=== PATIENT | male | born 1950 | race Caucasian/White ===

== ENCOUNTER 2017-08-26 16:24 | Emergency (ER) | payer BC ==
[2017-08-26 16:39] VITALS: BP 137/80
--- NOTE | 2017-08-26 16:41 | EDM.PDOC ---
ED HPI GENERAL MEDICAL PROBLEM - General Chief Complaint: Respiratory Problem Stated Complaint: FEVER TROUBLE BREATHING Time Seen by Provider: 08/26/17 16:45 Source of Information: Reports: Patient, RN Notes Reviewed - History of Present Illness INITIAL COMMENTS - FREE TEXT/NARRATIVE: 67 year old male with onset of cough, congestion, sore throat, Eduardo, fever, chills yesterday. Has all of those sx today, no energy, feels weak and dizzy. Cough occasionally productive. Hx of numerous episodes of pneumonia. Generalized Pain Score (Numeric/FACES): 8 - Related Data Allergies Allergy/AdvReac Type Severity Reaction Status Date / Time azithromycin [From Zithromax] Allergy Hives Verified 03/21/16 12:58 Home Meds: Home Meds Methylphenidate [Ritalin] 20 mg PO DAILY 06/08/14 [History] Levofloxacin [Levaquin] 1 tab PO Q24H #7 tablet 03/21/16 [Rx] Omeprazole Magnesium [Prilosec Otc] 20 mg PO DAILY 03/21/16 [History] Levofloxacin [Levaquin] 500 mg PO DAILY #7 tab 08/26/17 [Rx] Past Medical History Cardiovascular History: Reports: High Cholesterol Gastrointestinal History: Reports: Colon Polyp, GERD Genitourinary History: Reports: BPH Musculoskeletal History: Reports: Arthritis - Past Surgical History GI Surgical History: Reports: Other (See Below) Musculoskeletal Surgical History: Reports: Shoulder Surgery Social & Family History - Tobacco Use Smoking Status *Q: Current Every Day Smoker Years of Tobacco use: 40 Packs/Tins Daily: 1 - Alcohol Use Days Per Week of Alcohol Use: 0 - Recreational Drug Use Recreational Drug Use: No - Living Situation & Occupation Living situation: Reports: , with Spouse Occupation: Employed ED ROS GENERAL - Review of Systems Review Of Systems: See Below Constitutional: Reports: Fever, Chills. Denies: Diaphoresis HEENT: Reports: Rhinitis, Throat Pain. Denies: Sinus Problem, Vertigo, Vision Change Respiratory: Reports: Shortness of Breath (mild), Cough, Sputum. Denies: Wheezing, Pleuritic Chest Pain Cardiovascular: Reports: Chest Pain (burning discomfort anterior chest with coughing) GI/Abdominal: Denies: Abdominal Pain, Nausea, Vomiting Musculoskeletal: Reports: Shoulder Pain (shoulders feel achy). Denies: Neck Pain, Arm Pain Neurological: Reports: Dizziness, Headache, Weakness (generalized). Denies: Numbness, Tingling, Trouble Speaking ED EXAM, GENERAL - Physical Exam Exam: See Below General Appearance: Alert Eye Exam: Bilateral Eye: PERRL Nose: Normal Inspection Throat/Mouth: Normal Inspection, Normal Oropharynx Head: No: Facial Swelling Neck: Supple, Full Range of Motion Respiratory/Chest: No Respiratory Distress, Lungs Clear, Normal Breath Sounds. No: Rhonchi, Wheezing Cardiovascular: Regular Rate, Rhythm GI/Abdominal: Soft, Non-Tender Extremities: Normal Inspection, Normal Range of Motion Neurological: Alert, Oriented, No Motor/Sensory Deficits Skin Exam: Warm, Dry, Normal Color Course - Vital Signs Last Recorded V/S: Last Vital Signs Temp 99.6 F 08/26/17 17:21 Pulse 98 08/26/17 16:35 Resp 18 08/26/17 16:35 BP 137/80 08/26/17 16:35 Pulse Ox 98 08/26/17 16:35 - Orders/Labs/Meds Orders: Active Orders 24 hr Category Date Time Status Peripheral IV Care [RC] . DIRECTED Care 08/26/17 16:49 Active Chest 1V Frontal [CR] Stat Exams 08/26/17 16:58 Taken Sodium Chloride 0.9% [Saline Flush] Med 08/26/17 16:49 Active 10 ml FLUSH ASDIRECTED PRN Peripheral IV Insertion Adult [OM.PC] Stat Oth 08/26/17 16:49 Ordered Medication Orders Sodium Chloride (Saline Flush) 10 ml FLUSH ASDIRECTED PRN PRN Reason: Keep Vein Open Last Admin: 08/26/17 17:10 Dose: 10 ml Labs: Laboratory Tests 08/26/17 08/26/17 Range/Units 17:10 17:10 WBC 9.14 H (4.23-9.07) K/mm3 RBC 5.13 (4.63-6.08) M/mm3 Hgb 15.7 (13.7-17.5) gm/L Hct 45.6 (40.1-51.0) % MCV 88.9 (79.0-92.2) fl MCH 30.6 (25.7-32.2) pg MCHC 34.4 (32.2-35.5) g/dl RDW Std Deviation 43.6 (35.1-43.9) fL Plt Count 152 L (163-337) K/mm3 MPV 9.5 (9.4-12.3) fl Neut % (Auto) 86.5 H (34.0-67.9) % Lymph % (Auto) 4.5 L (21.8-53.1) % [place] % (Auto) 7.9 (5.3-12.2) % Eos % (Auto) 0.8 (0.8-7.0) Baso % (Auto) 0.2 (0.1-1.2) % Neut # (Auto) 7.91 H (1.78-5.38) K/mm3 Lymph # (Auto) 0.41 L (1.32-3.57) K/mm3 [place] # (Auto) 0.72 (0.30-0.82) K/mm3 Eos # (Auto) 0.07 (0.04-0.54) K/mm3 Baso # (Auto) 0.02 (0.01-0.08) K/mm3 Manual Slide Review Normal smear Sodium 141 (136-145) mEq/L Potassium 3.9 (3.5-5.1) mEq/L Chloride 107 (98-107) mEq/L Carbon Dioxide 25 (21-32) mEq/L Anion Gap 12.9 (5-15) BUN 9 (7-18) mg/dL Creatinine 1.0 (0.7-1.3) mg/dL Est Cr Clr Drug Dosing 77.24 mL/min Estimated GFR (MDRD) > 60 (>60) mL/min BUN/Creatinine Ratio 9.0 L (14-18) Glucose 118 H (80-115) mg/dL Calcium 8.9 (8.5-10.1) mg/dL Total Bilirubin 0.6 (0.2-1.0) mg/dL AST 24 (15-37) U/L ALT 46 (16-63) U/L Alkaline Phosphatase 79 (46-116) U/L Total Protein 7.0 (6.4-8.2) g/dl Albumin 3.8 (3.4-5.0) g/dl Globulin 3.2 gm/dL Albumin/Globulin Ratio 1.2 (1-2) Meds: Medications Generic Name Dose Route Start Last Admin Trade Name Freq PRN Reason Stop Dose Admin Sodium Chloride 10 ml 08/26/17 16:49 08/26/17 17:10 Saline Flush FLUSH 10 ml ASDIRECTED PRN Administration Keep Vein Open Discontinued Medications Generic Name Dose Route Start Last Admin Trade Name Jacklyn PRN Reason Stop Dose Admin Acetaminophen 975 mg 08/26/17 16:58 08/26/17 17:21 Tylenol PO 08/26/17 16:59 975 mg NOW ONE Administration Sodium Chloride 500 mls @ 999 mls/hr 08/26/17 16:57 08/26/17 17:21 Normal Saline IV 08/26/17 17:27 999 mls/hr .BOLUS ONE Administration Sodium Chloride 250 mls @ 500 mls/hr 08/26/17 18:00 08/26/17 19:28 Normal Saline IV 08/26/17 18:29 Not Given .BOLUS ONE Levofloxacin 500 mg 08/26/17 19:08 08/26/17 19:28 Levaquin PO 08/26/17 19:09 500 mg ONETIME ONE Administration - Re-Assessments/Exams Free Text/Narrative Re-Assessment/Exam: 08/26/17 19:29. CXR does not show apparent infliltrate. Pt is moderately ill, influenza screen neg, labs otherwise OK, with hx of susceptability to pneumonia will, neg infl. screen will start him on levaquin 500 mg daily for total of 8 days to cover for possible early pneumonia. Discharge instr. as documented. Departure - Departure Time of Disposition: 19:09 Disposition: Home, Self-Care 01 Condition: Fair Clinical Impression: Upper respiratory infection Qualifiers: URI type: unspecified viral URI Qualified Code(s): J06.9 - Acute upper respiratory infection, unspecified - Discharge Information Prescriptions: Levofloxacin [Levaquin] 500 mg PO DAILY #7 tab Instructions: Upper Respiratory Infection, Adult, [id number] Referrals: PCP,None [Primary Care Provider] - Forms: ED Department Discharge Additional Instructions: although your influenza screen today was negative your symptoms strongly suggest you have influenza or an influenza type illness. Vaporizer, Steam or humidifier as needed, alternate tylenol and ibuprofen as needed, drink plenty of water to maintain hydration. Levaquin antibiotic has been prescribed in case this is early pneumonia that does not yet show on your CXR. Take that once daily until gone. Follow up clinic in about 5 to 7 days for recheck if symptoms not resolving as expected. Return to ED as needed if symptoms worsening in any way. - My Orders Last 24 Hours: My Active Orders 08/26/17 16:49 Peripheral IV Care [RC] . DIRECTED Sodium Chloride 0.9% [Saline Flush] 10 ml FLUSH ASDIRECTED PRN Peripheral IV Insertion Adult [OM.PC] Stat 08/26/17 16:58 Chest 1V Frontal [CR] Stat - Assessment/Plan Last 24 Hours: My Active Orders 08/26/17 16:49 Peripheral IV Care [RC] . DIRECTED Sodium Chloride 0.9% [Saline Flush] 10 ml FLUSH ASDIRECTED PRN Peripheral IV Insertion Adult [OM.PC] Stat 08/26/17 16:58 Chest 1V Frontal [CR] Stat
[2017-08-26] MEDS ORDERED: Sodium Chloride 0.9% 10 ML Syringe FLUSH PRN (16:49)
[2017-08-26] MEDS ORDERED: Sodium Chloride 0.9% 500 ML IV ONE (16:57)
[2017-08-26] MEDS ORDERED: Acetaminophen 325 MG Tab PO ONE (16:58)
[2017-08-26] MEDS ORDERED: Sodium Chloride 0.9% 250 ML IV ONE (18:00)
[2017-08-26] MEDS ORDERED: Levofloxacin 250 MG Tab PO ONE (19:08)
--- NOTE | 2017-08-27 08:07 | CR ---
Chest: Portable view of the chest was obtained. Comparison: No prior chest x-ray. Heart size and mediastinum are normal. Previous cervical spine surgery is seen. Lungs are clear. Impression: 1. Incidental findings. Nothing acute is seen on portable chest x-ray. Diagnostic code #2
== END 2017-08-26 19:30 | disposition home or self-care (01) ==
LOC: JD.ED 16:24
DX: J06.9 Acute upper respiratory infection, unspecified (principal); E78.00 Pure hypercholesterolemia, unspecified; F17.210 Nicotine dependence, cigarettes, uncomplicated; Z88.1 Allergy status to other antibiotic agents; Z79.899 Other long term (current) drug therapy
CPT/HCPCS: 36415; 71045; 80053; 85025; 87804; 96360; 96361; 99284; A9270; J7040; J7050; 99283

== ENCOUNTER 2018-10-26 10:11 | Day surgery (SDC) | payer MEDICARE, OTHER ==
[~2018-10-26 10:11] MED LIST: Lactated Ringers 1,000 ML IV SCH; Lidocaine 1%/Sod Bicarbonate in NS 8.4% 1 ML Syringe IDERM PRN; Sodium Chloride 0.9% 10 ML Syringe FLUSH PRN
[2018-10-26] MEDS ORDERED: fentaNYL 100 MCG/2 ML SDV ONE (11:00)
[2018-10-26] MEDS ORDERED: Propofol 200 MG/20 ML SDV ONE ×2 (11:38→11:59)
--- NOTE | 2018-10-26 11:41 | PCM.PREANE ---
Preanesthetic Assessment - Procedure Proposed Procedure: aegd colonoscopy - Anesthesia/Transfusion/Family Hx Anesthesia History: Prior Anesthesia Without Reaction Family History of Anesthesia Reaction: No Transfusion History: No Prior Transfusion(s) - Review of Systems General: No Symptoms Pulmonary: No Symptoms Cardiovascular: No Symptoms Gastrointestinal: No Symptoms Neurological: No Symptoms Other: Reports: Neck Pain (fused- not hurt tho c3-7) - Physical Assessment NPO Status Date: 10/26/18 NPO Status Time: 04:00 O2 Sat by Pulse Oximetry: 98 Respiratory Rate: 16 Vital Signs: Last Vital Signs Temp 98.2 F 10/26/18 10:30 Pulse 79 10/26/18 10:30 Resp 16 10/26/18 10:30 BP 160/85 H 10/26/18 10:30 Pulse Ox 98 10/26/18 10:30 Height: 5 ft 10 in Weight: 89.358 kg ASA Class: 2 Mental Status: Alert & Oriented x3 Airway Class: Mallampati = 1 Dentition: Reports: Normal Dentition, Dentures (upper) Thyro-Mental Finger Breadths: 3 Mouth Opening Finger Breadths: 3 ROM/Head Extension: Full Lungs: Clear to Auscultation, Normal Respiratory Effort Cardiovascular: Regular Rate, Regular Rhythm - Allergies Allergies/Adverse Reactions: Allergies Allergy/AdvReac Type Severity Reaction Status Date / Time azithromycin [From Zithromax] Allergy Hives Verified 10/25/18 13:25 - Blood Blood Available: No - Acknowledgements Anesthesia Type Planned: MAC Pt an Appropriate Candidate for the Planned Anesthesia: Yes Alternatives and Risks of Anesthesia Discussed w Pt/Guardian: Yes Pt/Guardian Understands and Agrees with Anesthesia Plan: Yes PreAnesthesia Questionnaire HEENT History: Reports: Impaired Vision, Other (See Below) Other HEENT History: left ear pain, upper denture Respiratory History: Reports: Pneumonia, Recurrent Gastrointestinal History: Reports: Colon Polyp, GERD, Other (See Below) Genitourinary History: Reports: BPH, Other (See Below) Other Genitourinary History: dysuria, erectile dysfunction, urinary dribbling, UTI SOFTWARE DESIGN ENGINEER History: Reports: None Musculoskeletal History: Reports: Arthritis Neurological History: Reports: None, Other (See Below) Other Neuro History: narcolepsy, c3c7 fusion Psychiatric History: Reports: Depression Endocrine/Metabolic History: Reports: None Hematologic History: Reports: None Oncologic (Cancer) History: Reports: None Dermatologic History: Reports: None - Past Surgical History HEENT Surgical History: Reports: Adenoidectomy, Tonsillectomy Cardiovascular Surgical History: Reports: None GI Surgical History: Reports: Other (See Below) Other GI Surgeries/Procedures: hemorroid surgery Male Surgical History: Reports: Prostate Biopsy Endocrine Surgical History: Reports: None Neurological Surgical History: Reports: C-Spine Musculoskeletal Surgical History: Reports: Shoulder Surgery Other Musculoskeletal Surgeries/Procedures:: neck surgery Oncologic Surgical History: Reports: None Dermatological Surgical History: Reports: None - SUBSTANCE USE Smoking Status *Q: Former Smoker (now vapes- since 3 months ago) Tobacco Use Within Last Twelve Months: Cigarettes, Smokeless Tobacco Second Hand Smoke Exposure: Yes Days Per Week of Alcohol Use: 0 Recreational Drug Use History: No - HOME MEDS Home Medications: Home Meds Tamsulosin HCl 0.4 mg PO DAILY 10/25/18 [History] - CURRENT (IN HOUSE) MEDS Current Meds: Current Medications Lactated Ringer's (Ringers, Lactated) 1,000 mls @ 125 mls/hr IV ASDIRECTED NAKITA Stop: 10/26/18 23:00 Last Admin: 10/26/18 10:50 Dose: 125 mls/hr Lidocaine/Sodium Bicarbonate (Buffered Lidocaine 1% In Ns 8.4%) 0.25 ml IDERM ONETIME PRN PRN Reason: Prior to IV Start Stop: 10/26/18 23:00 Last Admin: 10/26/18 10:49 Dose: 0.25 ml Sodium Chloride (Saline Flush) 10 ml FLUSH ASDIRECTED PRN PRN Reason: Keep Vein Open Stop: 10/26/18 23:00 Discontinued Medications Fentanyl (Sublimaze) Confirm Administered Dose 100 mcg .ROUTE .STK-MED ONE Stop: 10/26/18 11:01
--- NOTE | 2018-10-26 12:31 | PCM48HPAN ---
Post Anesthesia Note - EVALUATION WITHIN 48HRS OF ANESTHETIC Vital Signs in Normal Range: Yes Patient Participated in Evaluation: Yes Respiratory Function Stable: Yes Airway Patent: Yes Cardiovascular Function Stable: Yes Hydration Status Stable: Yes Pain Control Satisfactory: Yes Nausea and Vomiting Control Satisfactory: Yes Mental Status Recovered: Yes Pulse Rate: 58 SaO2: 92 Resp Rate: 16 Temperature: 36.4 C Blood Pressure: 116/71 Pulse Rate: 58
--- NOTE | 2018-10-26 13:24 | OR ---
DATE OF OPERATION: 10/26/2018 SURGEON: Gus Meza MD PREOPERATIVE DIAGNOSIS: Gastroesophageal reflux disease and rectal bleeding. POSTOPERATIVE DIAGNOSIS: Gastroesophageal reflux disease and rectal bleeding. OPERATION PERFORMED: Esophagogastroduodenoscopy with biopsy of the pyloric antrum for permanent and Helicobacter pylori evaluation and colonoscopy with snare of 2 polyps, one in the sigmoid and one in the rectum. ANESTHESIA: MAC. SPECIMEN: Gastric biopsy and colon polyps. OPERATIVE FINDINGS: Normal EGD and colon with polyp x2. He has minimal sigmoid diverticulosis. INDICATION FOR PROCEDURE: This 68-year-old male has symptoms of GERD and a history of H. pylori. He also has some occasional rectal bleeding. He complains of having prior hemorrhoid surgery with narrowing of the anal opening or rectum. DESCRIPTION OF PROCEDURE: After adequate preparation, a gastroscope was inserted into the esophagus. This was passed down to the EG junction. This was normal. No evidence of reflux esophagitis or hiatal hernia. The scope was advanced into the stomach. Both forward and retroflexed views were done and appeared to be normal. There were 2 biopsies taken of the prepyloric antrum, one for H. pylori and one for permanent section. A photograph of this was taken. The scope was advanced through the pylorus and the duodenum appeared to be normal. Air was suctioned from the stomach and the scope removed. Colonoscopy was then performed by inserting the scope through the anal canal and this was then easily threaded all the way to the cecum. Confirmation of the cecum was made by visualization of the ileocecal valve, palpation in the right lower quadrant, and light shining through the right lower quadrant. The bowel prep was adequate. On withdrawal of the scope, the only abnormality noted were 2 small polyps between 2 and 3 mm, one was located in the mid sigmoid area, one in the mid rectum. A snare was placed around each one of these separately and they were clipped off and retrieved for pathological evaluation. Air was suctioned from the colon and the rectum. ADDENDUM: The rectal and anal examination appeared to be normal. ESTIMATED BLOOD LOSS: MMODAL /[id number]
[2018-10-26 13:40] VITALS: BP 121/79
== END 2018-10-26 13:40 | disposition home or self-care (01) ==
LOC: JD.SDS 10:11
PROVIDERS: ATTEND Surgery
DX: K21.9 Gastro-esophageal reflux disease without esophagitis (principal); K62.5 Hemorrhage of anus and rectum; D12.4 Benign neoplasm of descending colon; D12.8 Benign neoplasm of rectum; K57.30 Diverticulosis of large intestine without perforation or abscess without bleeding; N40.0 Benign prostatic hyperplasia without lower urinary tract symptoms; F17.290 Nicotine dependence, other tobacco product, uncomplicated; E78.5 Hyperlipidemia, unspecified; M19.90 Unspecified osteoarthritis, unspecified site; F32.9 Major depressive disorder, single episode, unspecified; Z86.19 Personal history of other infectious and parasitic diseases; Z79.899 Other long term (current) drug therapy; Z88.1 Allergy status to other antibiotic agents
CPT/HCPCS: 43239; 45385; J2704; J7120; J3010

== ENCOUNTER 2019-09-16 12:09 | Emergency (ER) | payer MEDICARE, OTHER ==
[2019-09-16 12:19] VITALS: BP 154/88; PULSE 64
--- NOTE | 2019-09-16 13:05 | EDM.PDOC ---
ED HPI GENERAL MEDICAL PROBLEM - General Chief Complaint: Respiratory Problem Stated Complaint: SOB Time Seen by Provider: 09/16/19 12:19 Source of Information: Reports: Patient History Limitations: Reports: No Limitations - History of Present Illness INITIAL COMMENTS - FREE TEXT/NARRATIVE: Patient is a 69-year-old male who presents with complaints of cough, shortness of breath and sinus drainage for the past 2-1/2 weeks. He states that initially the symptoms did improve, however approximately 1 week ago they worsened again. He has a history of pneumonia, however does not have a diagnosis of COPD or asthma. He is a former smoker. States he quit approximately 1 year ago but prior to this he would smoke a pack a day. States that he has had intermittent fevers, however that "none of them are very high " . - Related Data Allergies Allergy/AdvReac Type Severity Reaction Status Date / Time azithromycin [From Zithromax] Allergy Hives Verified 09/16/19 12:15 Home Meds: Home Meds Tamsulosin HCl 0.4 mg PO DAILY 10/25/18 [History] Amoxicillin/Clavulanate K [Augmentin 875-125 MG] 1 tab PO BID #14 tablet [Rx] Past Medical History HEENT History: Reports: Impaired Vision, Other (See Below) Other HEENT History: left ear pain, upper denture Cardiovascular History: Reports: High Cholesterol Respiratory History: Reports: Pneumonia, Recurrent Gastrointestinal History: Reports: Colon Polyp, GERD, Other (See Below) Genitourinary History: Reports: BPH, Other (See Below) Other Genitourinary History: dysuria, erectile dysfunction, urinary dribbling, UTI; bladder tumors EYE TECHNICIAN History: Reports: None Musculoskeletal History: Reports: Arthritis Neurological History: Reports: None, Other (See Below) Other Neuro History: narcolepsy, c3c7 fusion Psychiatric History: Reports: Depression Endocrine/Metabolic History: Reports: None Hematologic History: Reports: None Oncologic (Cancer) History: Reports: None Dermatologic History: Reports: None - Past Surgical History HEENT Surgical History: Reports: Adenoidectomy, Tonsillectomy Cardiovascular Surgical History: Reports: None GI Surgical History: Reports: Other (See Below) Other GI Surgeries/Procedures: hemorroid surgery Male Surgical History: Reports: Prostate Biopsy Endocrine Surgical History: Reports: None Neurological Surgical History: Reports: C-Spine Musculoskeletal Surgical History: Reports: Shoulder Surgery Other Musculoskeletal Surgeries/Procedures:: neck surgery Oncologic Surgical History: Reports: None Dermatological Surgical History: Reports: None Social & Family History - Family History Family Medical History: Noncontributory - Tobacco Use Smoking Status *Q: Former Smoker Used Tobacco, but Quit: Yes Month/Year Tobacco Last Used: 2017 - Caffeine Use Caffeine Use: Reports: Coffee, Soda - Living Situation & Occupation Living situation: Reports: , with Spouse Occupation: Employed ED ROS GENERAL - Review of Systems Review Of Systems: Comprehensive ROS is negative, except as noted in HPI. ED EXAM, GENERAL - Physical Exam Exam: See Below Exam Limited By: No Limitations General Appearance: Alert, WD/WN, No Apparent Distress Respiratory/Chest: No Respiratory Distress, Normal Breath Sounds, No Accessory Muscle Use, Chest Non-Tender, Rhonchi (Clear with coughing) Cardiovascular: Normal Peripheral Pulses, Regular Rate, Rhythm, No Edema, No Gallop, No JVD, No Murmur, No Rub Extremities: Normal Inspection, Normal Range of Motion, Non-Tender, Normal Capillary Refill, No Pedal Edema Neurological: Alert, Oriented, CN II-XII Intact, Normal Cognition, Normal Gait, Normal Reflexes, No Motor/Sensory Deficits Psychiatric: Normal Affect, Normal Mood Skin Exam: Warm, Dry, Intact, Normal Color, No Rash Course - Vital Signs Last Recorded V/S: Last Vital Signs Temp 97.0 F 09/16/19 12:15 Pulse 64 09/16/19 12:15 Resp 19 09/16/19 12:15 BP 154/88 H 09/16/19 12:15 Pulse Ox 97 09/16/19 12:15 - Orders/Labs/Meds Orders: Active Orders 24 hr Category Date Time Status Chest 2V [CR] Stat Exams 09/16/19 12:28 Taken - Re-Assessments/Exams Free Text/Narrative Re-Assessment/Exam: 09/16/19 13:02 Chest x-ray was negative for any infiltrates. Based on his symptoms however I will treat for a bacterial sinusitis. Prescription for Augmentin has been sent to [facility]. Also recommended the patient start taking over-the- counter Mucinex. Discharge instructions as documented. Departure - Departure Time of Disposition: 13:03 Disposition: Home, Self-Care 01 Condition: Fair Clinical Impression: Sinusitis, bacterial - Discharge Information *PRESCRIPTION DRUG MONITORING PROGRAM REVIEWED*: No *COPY OF PRESCRIPTION DRUG MONITORING REPORT IN PATIENT SOUMYA: No Prescriptions: Amoxicillin/Clavulanate K [Augmentin 875-125 MG] 1 tab PO BID #14 tablet Instructions: Sinusitis, Adult, [id number] Referrals: Mojgan Seaman PA-C [Primary Care Provider] - Additional Instructions: You were seen in the emergency department today for cough, shortness of breath, and sinus congestion and drainage for the last 2 weeks. Chest x-ray was negative for any signs of pneumonia. It is likely that you are suffering from a bacterial sinusitis. Prescription for Augmentin has been sent to [facility]. Recommend you take this as prescribed. Also recommend that you start taking an [id number] Mucinex to help loosen the secretions. If you should experience any worsening symptoms, please do not hesitate to return to the emergency department. Sepsis Event Note - Evaluation Sepsis Screening Result: No Definite Risk - Focused Exam Vital Signs: Vital Signs Temp Pulse Resp BP Pulse Ox 09/16/19 12:15 97.0 F 64 19 154/88 H 97 Date Exam was Performed: 09/16/19 Time Exam was Performed: 13:00 - My Orders Last 24 Hours: My Active Orders 09/16/19 12:28 Chest 2V [CR] Stat - Assessment/Plan Last 24 Hours: My Active Orders 09/16/19 12:28 Chest 2V [CR] Stat
--- NOTE | 2019-09-16 16:38 | CR ---
Chest: Two views of the chest were obtained. Comparison: No prior chest imaging. Heart size and mediastinum are normal. Previous cervical spine surgery is partially seen. Lungs are clear with no acute parenchymal change. Minimal degenerative change is scattered within the spine. Impression: 1. Findings as noted above. 2. Nothing acute is appreciated on two-view chest x-ray. Diagnostic code #2 This report was dictated in [place] Standard Time
== END 2019-09-16 13:24 | disposition home or self-care (01) ==
LOC: JD.ED 12:09
DX: J32.9 Chronic sinusitis, unspecified (principal); B96.89 Other specified bacterial agents as the cause of diseases classified elsewhere; N40.0 Benign prostatic hyperplasia without lower urinary tract symptoms; M19.90 Unspecified osteoarthritis, unspecified site; Z87.891 Personal history of nicotine dependence; Z88.1 Allergy status to other antibiotic agents; Z79.899 Other long term (current) drug therapy
CPT/HCPCS: 71046; 71046-26; 99283; 99284-25

== ENCOUNTER 2023-04-27 11:19 | Emergency (ER) | payer MEDICARE, OTHER ==
[2023-04-27 13:00] VITALS: BP 128/69; PULSE 62
== END 2023-04-27 13:00 | disposition home or self-care (01) ==
LOC: JD.ED 11:19
DX: S49.91XA Unspecified injury of right shoulder and upper arm, initial encounter (principal); Z88.1 Allergy status to other antibiotic agents; W01.0XXA Fall on same level from slipping, tripping and stumbling without subsequent striking against object, initial encounter
CPT/HCPCS: 73030-26-RT; 73030-RT; 99283

== ENCOUNTER 2024-11-17 15:51 | Emergency (ER) | payer MEDICARE, OTHER ==
[2024-11-17 17:15] LABS: BASOPHILS PERCENT AUTO 0.4 % (0.0-1.0); EOSINOPHILS ABSOLUTE AUTO 0.2 K/mm3 (0.0-0.4); EOSINOPHILS PERCENT AUTO 1.6 % (0.0-6.0); HEMATOCRIT 44.7 % (42.0-52.0); HEMOGLOBIN 15.5 gm/dl (14.0-18.0); IMMATURE GRAN ABSOLUTE AUTO 0.03 K/mm3 (0.00-0.05); IMMATURE GRAN PERCENT AUTO 0.3 % (0.0-0.4); LYMPHOCYTES ABSOLUTE AUTO 2.1 K/mm3 (1.0-4.8); LYMPHOCYTES PERCENT AUTO 19.2 % (24.0-44.0); MEAN CORPUSCULAR HEMOGLOBIN 31.3 pg (28.0-32.0); MEAN CORPUSCULAR HGB CONC 34.7 g/dl (32.0-36.0); MEAN CORPUSCULAR VOLUME 90.3 fl (83.0-99.0); MEAN PLATELET VOLUME 8.9 fl (9.4-12.4); MONOCYTES ABSOLUTE AUTO 0.8 K/mm3 (0.0-0.8); MONOCYTES PERCENT AUTO 7.3 % (0.0-8.0); NEUTROPHILS PERCENT AUTO 71.2 % (41.0-71.0); PLATELET COUNT,PLT 192 K/mm3 (150-400); RED BLOOD CELL COUNT 4.95 M/mm3 (4.52-5.90); WHITE BLOOD CELL COUNT,WBC 11.16 K/mm3 (3.9-11.3)
[2024-11-17 17:45] LABS: ALBUMIN 3.5 g/dl (3.4-5.0); ANION GAP 9.7 (5-15); BILIRUBIN TOTAL 0.4 mg/dL (0.2-1.0); BUN/CREATININE RATIO 8.9 (14-18); CALCIUM 9.3 mg/dL (8.5-10.1); CREATININE 0.9 mg/dL (0.7-1.3); EST CRCL DRUG DOSING (CG) 76.6 mL/min; POTASSIUM,K 3.7 mEq/L (3.5-5.1)
[2024-11-17 19:13] VITALS: BP 144/84; PULSE 75
== END 2024-11-17 18:53 | disposition home or self-care (01) ==
LOC: JD.ED 15:51
DX: M25.471 Effusion, right ankle (principal); M25.472 Effusion, left ankle; E78.00 Pure hypercholesterolemia, unspecified; Z88.1 Allergy status to other antibiotic agents; Z79.899 Other long term (current) drug therapy
CPT/HCPCS: 36415; 71045; 71045-26; 80053; 83880; 84484; 85025; 93005; 93010; 93970; 93970-26; 99283; 99284

== ENCOUNTER 2025-02-24 15:57 | Emergency (ER) | payer MEDICARE, OTHER ==
[2025-02-24 16:13] VITALS: BP 147/80; PULSE 72
[2025-02-24] MEDS: Acetaminophen/HYDROcodone 325-5 MG Tab PO ONE (16:40)
== END 2025-02-24 16:45 | disposition home or self-care (01) ==
LOC: JD.ED 15:57
DX: B34.9 Viral infection, unspecified (principal); E78.00 Pure hypercholesterolemia, unspecified; Z88.1 Allergy status to other antibiotic agents; Z79.899 Other long term (current) drug therapy
CPT/HCPCS: 71045; 99284; A9270